=== PATIENT | male | born 1970 | race Caucasian/White ===

== ENCOUNTER → 2017-02-06 | Outpatient (CLI) | payer BC, OTHER ==
--- NOTE | 2017-02-06 14:14 | REP ---
Right ankle four views: Mineralization joint spaces are normal. The mortise is symmetric. There are accessory ossicles distal to the medial malleolus. There is no fracture or dislocation. There are calcaneal plantar and Achilles spurs. Impression: Essentially negative right ankle. Signed by Dixon Osullivan MD 02/06/2017 02:05 P
== END ==
LOC: M WUC 13:44
PROVIDERS: ATTEND Physician Assistant
DX: M25.571 Pain in right ankle and joints of right foot (principal)

== ENCOUNTER 2021-06-25 14:41 | Inpatient (IN) | payer BC, OTHER ==
[~2021-06-25] VITALS: Ht 177.8 cm; Wt 136.6 kg
--- OUTSIDE RECORDS SUMMARY | 2021-06-25 14:48 | CCD ---
Author Author [facility] Address Unknown Phone Unavailable Support Name Relationship Address Phone SUPERWALM Next Of Kin [address] [place], [place] [id number] LULU HOFFMANN Next Of Kin [address] [place] [address] Marianela HOFFMANN Next Of Kin [address] [place], [place] [id number] Re-disclosure Warning The records that you are about to access may contain information from federally-assisted alcohol or drug abuse programs. If such information is present, then the following federally mandated warning applies: This information has been disclosed to you from records protected by federal confidentiality rules (42 CFR part 2). The federal rules prohibit you from making any further disclosure of this information unless further disclosure is expressly permitted by the written consent of the person to whom it pertains or as otherwise permitted by 42 CFR part 2. A general authorization for the release of medical or other information is NOT sufficient for this purpose. The Federal rules restrict any use of the information to criminally investigate or prosecute any alcohol or drug abuse patient.The records that you are about to access may contain highly sensitive health information, the redisclosure of which is protected by Article 27-F of the [facility] Public Health law. If you continue you may have access to information: Regarding HIV / AIDS; Provided by facilities licensed or operated by the [facility] Office of Mental Health; or Provided by the [facility] Office for People With Developmental Disabilities. If such information is present, then the following [facility] mandated warning applies: This information has been disclosed to you from confidential records which are protected by state law. State law prohibits you from making any further disclosure of this information without the specific written consent of the person to whom it pertains, or as otherwise permitted by law. Any unauthorized further disclosure in violation of state law may result in a fine or fdc sentence or both. A general authorization for the release of medical or other information is NOT sufficient authorization for further disc losure. Family History Family Member Name Family Member Gender Family Member Status Date o f Status Description Data Source(s) Unknown Unknown Problem [facility] ([facility]) mother Immunizations Vaccine Date Status Description Data Source(s) COVID-19 VACCINE Tamir 01/28/2021 12:00:00 AM EDT completed [place] Vaccine Series Complete: YESThis Data wa s Submitted to [facility] Via [employer]. Medications No Information Insurance Providers Payer name Policy type / Coverage type Policy ID Covered green party ID Covered green party's relationship to webb Policy Webb Plan Information [facility]307 [id number] SP [id number] [facility] [id number] SP [id number] BCBS [facility] 020/520 [id number] SP [id number] ANSI-Commercial [id number] EXCELLUS BCBS B [id number] S W [id number] BCBS/Blue Card Commercial [id number] Self [id number] [facility] O [id number] S [id number] [facility] UNAVAILABLE SP UNAVAILABLE [facility] [id number] SP [id number] BLUE CROSS BLUE SHIELD -O/P [id number] 18 [id number] BLUE CROSS BLUE SHIELD -O/P [id number] 18 [id number] Problems, Conditions, and Diagnoses No Information Surgeries/Procedures No Information Results No Information Social History No Information
--- OUTSIDE RECORDS SUMMARY | 2021-06-25 17:19 | CCD ---
Author Author [facility] Address Unknown Phone Unavailable Support Name Relationship Address Phone SUPERWALM Next Of Kin [address] [place] [address] LULU HOFFMANN Next Of Kin [address] [place] [address] Marianela HOFFMANN Next Of Kin [address] [place] [address] Re-disclosure Warning The records that you are [...] is protected by Article 27-F of the [facility] Public Health law. If you continue you may have access to information: Regarding HIV / AIDS; Provided by facilities licensed or operated by the [facility] Office of Mental Health; or Provided by the [facility] Office for People With Developmental Disabilities. If such information is present, then the following [facility] mandated warning applies: This information has been [...] law may result in a fine or mcc sentence or both. A general authorization for [...] Complete: YESThis Data wa s Submitted to [facility] Via [employer]. Medications No Information Insurance Providers Payer name Policy type / Coverage type Policy ID Covered alliance party ID Covered alliance party's relationship to webb Policy Webb Plan Information BCBS OF [place] 020/520 [id number] SP [id number] BCBS [place] PPO 302/307 [id number] SP [id number] [facility] [id number] SP [id number] ANSI-Commercial [id number] EXCELLUS BCBS B [id number] S W [id number] BCBS/Blue Card Commercial [id number] Self [id number] [facility] O [id number] S [id number] [facility] UNAVAILABLE SP UNAVAILABLE [facility] [id number] SP [id number] BLUE CROSS BLUE SHIELD -O/P [id number] 18 [id number] BLUE CROSS BLUE SHIELD -O/P [id number] 18 [id number] Problems, Conditions, and Diagnoses No Information Surgeries/Procedures No Information Results No Information Social History No Information
--- NOTE | 2021-06-25 17:29 | REP ---
INDICATION: ulcer, drainage, ? osteo COMPARISON: None. TECHNIQUE: Four views right toes. FINDINGS: There is significant soft tissue swelling of the right 2nd toe. Soft tissue ulceration is seen at the distal aspect of the 2nd toe. There is cortical destruction and ill-defined lucency of the 2nd distal phalanx consistent with osteomyelitis. IMPRESSION: Osteomyelitis of the 2nd distal phalanx. <Electronically signed by Dixon Chew > 06/25/21 [id number]
[2021-06-25] MEDS ORDERED: PIPERACILLIN/TAZOBACTAM SOD 4.5 GM in D5W MINI-BAG PLUS 50 ML IV ONE (18:00)
[2021-06-25] MEDS ORDERED: VANCOMYCIN HCL 2,000 MG in D5W 500 ML IV ONE (18:00)
[2021-06-25 19:16] LABS: BASO # 0.1 10^3/uL (0.0-0.2); BASO % 0.6 % (0.0-1.0); EOS # 0.2 10^3/uL (0.0-0.5); EOS % 2.1 % (0.0-3.0); HEMOGLOBIN 16.1 g/dl (13.5-17.5); LYMPH # 1.3 10^3/uL (1.5-5.0); LYMPH % 13.8 % (24.0-44.0); MEAN CORPUSCULAR HEMOGLOBIN 29.5 pg (27.0-33.0); MEAN CORPUSCULAR HGB CONC 33.5 g/dl (32.0-36.5); MEAN CORPUSCULAR VOLUME 87.9 fl (80.0-96.0); MONO # 0.6 10^3/uL (0.0-0.8); MONO % 6.7 % (2.0-8.0); NEUTROPHILS # 7.2 10^3/uL (1.5-8.5); NEUTROPHILS % 76.3 % (36.0-66.0); PLATELET COUNT, AUTOMATED 184 10^3/uL (150-450); RED BLOOD COUNT 5.46 10^6/uL (4.30-6.10); WHITE BLOOD COUNT 9.4 10^3/uL (4.0-10.0)
[2021-06-25 19:36] LABS: ERYTHROCYTE SEDIMENTATION RATE 38 mm/hr (0-15)
[2021-06-25 19:37] LABS: ALBUMIN 3.5 GM/DL (3.2-5.2); ALT/SGPT 26 U/L (12-78); BILIRUBIN,TOTAL 1.1 MG/DL (0.2-1.0); BLOOD UREA NITROGEN 15 MG/DL (7-18); CALCIUM LEVEL 9.1 MG/DL (8.5-10.1); CARBON DIOXIDE LEVEL 28 MEQ/L (21-32); CHLORIDE LEVEL 100 MEQ/L (98-107); GLOMERULAR FILTRATION RATE > 60.0 (>60); GLUCOSE, FASTING 280 MG/DL (70-100); POTASSIUM SERUM 4.1 MEQ/L (3.5-5.1); SODIUM LEVEL 132 MEQ/L (136-145); TOTAL PROTEIN 8.1 GM/DL (6.4-8.2)
[2021-06-25 20:00] LABS: HEMOGLOBIN A1c 9.7 %
[2021-06-25] MEDS ORDERED: VANCOMYCIN HCL 1,000 MG, VIAL MATE ADAPTER 1 EACH in NS 250 ML IV ONE ×6 (20:00)
[2021-06-25] MEDS ORDERED: HumuLIN R (REGULAR) INSULIN (NovoLIN R) **100U/ML** PER UNIT IV ONE (20:25)
[2021-06-25] MEDS ORDERED: NS 1,000 ML IV SCH (20:25)
--- OUTSIDE RECORDS SUMMARY | 2021-06-25 20:47 | CCD ---
Author Author [facility] Address Unknown Phone Unavailable Support Name Relationship Address Phone SUPERWALM Next Of Kin [address] [place] [address] LULU HOFFMANN Next Of Kin [address] [place] [address] Marianela HOFFMANN Next Of Kin [address] [place] [address] Re-disclosure Warning The records that you are [...] is protected by Article 27-F of the [facility] Public Health law. If you continue you may have access to information: Regarding HIV / AIDS; Provided by facilities licensed or operated by the [facility] Office of Mental Health; or Provided by the [facility] Office for People With Developmental Disabilities. If such information is present, then the following [facility] mandated warning applies: This information has been [...] law may result in a fine or long-term sentence or both. A general authorization for [...] Complete: YESThis Data wa s Submitted to [facility] Via [employer]. Medications No Information Insurance Providers Payer name Policy type / Coverage type Policy ID Covered alliance party ID Covered alliance party's relationship to webb Policy Webb Plan Information BCBS OF [place] 020/520 [id number] SP [id number] BCBS [place] PPO 302/307 [id number] SP [id number] [facility] [id number] SP [id number] ANSI-Commercial [id number] EXCELLUS BCBS B [id number] S W [id number] BCBS/Blue Card Commercial [id number] Self [id number] [facility] O [id number] S [id number] [facility] UNAVAILABLE SP UNAVAILABLE [facility] [id number] SP [id number] BLUE CROSS BLUE SHIELD -O/P [id number] 18 [id number] BLUE CROSS BLUE SHIELD -O/P [id number] 18 [id number] Problems, Conditions, and Diagnoses No Information Surgeries/Procedures No Information Results No Information Social History No Information
--- NOTE | 2021-06-25 20:51 | HPEPDOC ---
General Date of Admission Jun 25, 2021 at 20:37 Date of Service: Jun 25, 2021 Attending Physician: MIREYA ZAVALETA MD Chief Complaint toe pain History of Present Illness History of present illness: Mr. Beebe is a 50 year old male presenting to the emergency department for right second toe pain of two weeks duration. He states that he has had a hard time finding shoes that fit him properly and do not cause his toes to "curl under". His toes often rubbed on the inside of his work shoes while walking and rubbed an area of his skin off. He noticed that his second toe on his right foot was swollen and red about two weeks ago. He has experienced this before and despite the toe being mildly painful, he thought it would heal on its own. He works maintenance at [employer] and bought a new pair of work shoes 5 days ago. He started wearing those shoes to work on Wednesday and by the end of the work day his toe had swollen to twice its size, was very painful, and had an open oozing area visible on the top. He went to work on Wednesday and decided to present to an Urgent care earlier today to get his toe checked out. He was advised to present to the ED by the urgent care provider. He denies feeling any pain in the toe today despite it looking physically worse and oozing a thick p urulent discharge. He can bear weight on the foot but states his foot is mildly painful due to swelling. He has a history of ingrown toenails. Review of systems: General: denies fever, chills, or night sweats HEENT: denies changes in vision, difficulty swallowing, swollen glands Cardiovascular: denies chest pain or palpitations Pulmonary: denies shortness of breath, pain with inspiration, wheezing, cough Abdomen: denies nausea, vomiting, diarrhea, admits to occasional constipation Extremities: admits to right foot pain and swelling, particularly his right second toe which is red, swollen, and draining a thick purulent discharge. Admits to decreased sensation on his right second toe Past medical/surgical history: Prediabetes Acute Lymphocytic leukemia 1989 (in remission since 1994) Bone marrow biopsy circa 1989 Family history: Father in 60's from pneumonia / Mother: in 60's from Diabetes mellitus complications / Brother: from head injury Social history: Patient denies tobacco or illicit drug use / Patient admits to occasional alcohol use / Patient lives alone in [place], [place] and works at [employer] Allergies: No known drug allergies Physical examination: General: A well nourished male sitting in bed in no acute distress. He is pleasant to speak with. HEENT: PERRLA, EOMI, mucous membranes moist and pink, no lymphadenopathy noted Cardiovascular: regular rate and rhythm, no murmurs or gallops appreciated Pulmonary: clear to auscultation bilaterally, no wheezes or rhonchi noted Extremities: 1+ pitting edema noted in right foot up to midshin. The skin on his 1st-5th toes on the right foot appears erythematous. His right 2nd phalanx is equal in size to 1st phalanx secondary to edema. There is a 1.5cm open ulceration on the superior aspect of the toe, white purulent drainage and blood is noted. There is a calloused area on the inferior aspect of the 2nd distal phalanx. His right foot is warm to the touch. Pulses are 2+ throughout. Capillary refill is <2 seconds. Neuro: Patient has full sensation of both lower extremities with the exception o f his second toe which has decreased sensation to light touch. Psych: alert and oriented x 4. Imaging: Toe X-ray 06/25/21 IMPRESSION: Osteomyelitis of the 2nd distal phalanx. Assessment: Mr. Beebe is a 50 year old male with a past medical history of Prediabetes and Acute Lymphocytic leukemia who presented to the emergency department for right second toe pain of two weeks duration. In the emergency department he was found to have osteomyelitis of the right 2nd distal phalanx. He is being admitted for treatment and will be seen by Dr. Barry this AM. Plan: Osteomyelitis -Right 2nd distal phalanx, x-ray results as above -WBC wnl -ESR and CRP elevated -Wound culture and blood cultures pending -Dr. Barry has been consulted on this patient, we appreciate his input as he will see the patient this AM -Keep patient NPO after midnight anticipating possible surgery with Dr. Barry -started vancomycin q 12 hours, can deescalate based on culture sensitivities. Diabetes Mellitus -Plasma glucose 232 -hemoglobin A1C 9.7 -Patient is NPO, FSBG q 6 hours -patient will need outpatient follow up on this new diagnosis -started sliding scale insulin with hypoglycemic protocol. Will hold while savanah ent is NPO -will start long acting basal insulin once patient is no longer NPO Acute Lymphocytic leukemia -Patient in remission since 1994 Class 3 obesity -complicates care DVT prophylaxis: -continue heparin Disposition: home after at least 2 midnight's stay Home Medications Scheduled Cephalexin (Cephalexin) 500 Mg Tablet, 500 MG PO QID Metformin HCl (Metformin HCl) 500 Mg Tablet, 500 MG PO BID Allergies Coded Allergies: asparaginase (Verified Allergy, Intermediate, ARM SWELLING, HYPOTENSION, 06/25/21) A-FIB/CHADSVASC A-FIB History Current/History of A-Fib/PAF?: No Current PO Anticoag Therapy: No Vital Signs Vital Signs Date Time Temp Pulse Resp B/P (MAP) Pulse Ox O2 Delivery O2 Flow Rate FiO2 06/25/21 20:45 98.7 92 16 149/78 (101) 97 Room Air Laboratory Data Labs 24H Laboratory Tests 2 06/25/21 17:01: Immature Granulocyte % (Auto) 0.5, Neutrophils (%) (Auto) 76.3H, Lymphocytes (%) (Auto) 13.8L, Monocytes (%) (Auto) 6.7, Eosinophils (%) (Auto) 2.1, Basophils (%) (Auto) 0.6, Neutrophils # (Auto) 7.2, Lymphocytes # (Auto) 1.3L, Monocytes # (Auto) 0.6, Eosinophils # (Auto) 0.2, Basophils # (Auto) 0.1, Nucleated Red Blood Cells % (auto) 0.0, Erythrocyte Sedimentation Rate 38H, Anion Gap 4L, Glomerular Filtration Rate > 60.0, Calcium Level 9.1, Total Bilirubin 1.1H, Aspartate Amino Transf (AST/SGOT) 12, Alanine Aminotransferase (ALT/SGPT) 26, Alkaline Phosphatase 95, C-Reactive Protein, Quantitative 13.70H, Total Protein 8.1, Albumin 3.5, Albumin/Globulin Ratio 0.8 06/25/21 18:03: Estimated Mean Plasma Glucose 232H, Hemoglobin A1c 9.7 06/25/21 19:33: POC Lactate (Misc Panel) 1.49 CBC/BMP Laboratory Tests 06/25/21 17:01 Microbiology Microbiology 06/25/21 Blood Culture, Received Pending 06/25/21 Blood Culture, Received Pending 06/25/21 Wound Culture, Received Pending Plan / VTE VTE Prophylaxis Ordered?: Yes GME ATTESTATION GME ATTESTATION My faculty preceptor for this patient encounter was physically present during the encounter and was fully available. All aspects of the patient interview, e xamination, medical decision making process, and medical care plan development were reviewed and approved by the faculty preceptor. The faculty preceptor is aware and concurs with the plan as stated in the body of this note and will attest to such by his/her cosignature. ATTENDING NOTE Time of service 427PM is a 50 yr old w a hx of pre-DM and class 3 obesity who presented w c/o right 2nd toe redness and swelling; he denies having pain, f/c. His PE is remarkable for a right 2nd toe that swollen with purulent discharge and redness tracking up the dorsal surface of the forefoot. He will be admitted for: #Right 2nd toe osteomyelitis #Uncontrolled DM w neuropathy #class 3 obesity He is NPO and is on abx; will likely perform amputation of the toe in the morning. If his A1C is > 8.5% which we suspect he will need to be started on basal and bolus insulin prior to discharge. Rest per GERSON Cárdenas DO Jun 25, 2021 20:50 MIREYA ZAVALETA MD Jun 26, 2021 00:26
[2021-06-25] MEDS ORDERED: MAALOX 30 ML SUSP *UDC PO PRN (20:55)
[2021-06-25] MEDS ORDERED: MOM 30ML SUSPENSION UDC PO PRN (20:55)
[2021-06-25] MEDS ORDERED: ACETAMINOPHEN TAB 650MG DOSE (2X325MG) PO PRN (20:55)
[2021-06-25] MEDS ORDERED: GLUCOSE 4GM CHEW TABLET PO PRN (21:00)
[2021-06-25] MEDS ORDERED: HumaLOG INSULIN (NovoLOG) PER UNIT SC SCH (21:00)
[2021-06-25] MEDS ORDERED: GLUCAGON INJ 1MG VIAL SC PRN (21:00)
[2021-06-25] MEDS ORDERED: DEXTROSE 50% 50 ML SYRINGE IV PRN (21:00)
[2021-06-25] MEDS ORDERED: VANCOMYCIN HCL 1,000 MG, VIAL MATE ADAPTER 1 EACH in NS 250 ML IV SCH (21:30)
[2021-06-25] MEDS ORDERED: HOME MED LIST COMPLETE! XX SCH (23:30)
[2021-06-26] VITALS (9 sets, daily range): BP systolic 138–163; BP diastolic 60–95
[2021-06-26] MEDS ORDERED: CARE1KIT XX (00:29)
[2021-06-26] MEDS: DOCUSATE SODIUM 100MG CAPSULE PO SCH ×3 (00:41→20:03)
[2021-06-26] MEDS: HumaLOG INSULIN (NovoLOG) PER UNIT SC SCH ×5 (00:57→23:26)
[2021-06-26] MEDS: NS 1,000 ML IV SCH ×2 (00:57→09:11)
[2021-06-26] MEDS: HEPARIN SOD (PORCINE) 5000UNITS/ML 1ML VIAL/SYRINGE SC SCH ×3 (04:22→22:01)
[2021-06-26] MEDS: VANCOMYCIN HCL 750 MG, VIAL MATE ADAPTER 1 EACH in NS 250 ML IV SCH ×6 (05:45→23:25)
[2021-06-26 06:56] LABS: BLOOD UREA NITROGEN 12 MG/DL (7-18); C REACTIVE PROTEIN QUANTITATIV 9.08 MG/DL (0.00-0.30); CARBON DIOXIDE LEVEL 25 MEQ/L (21-32); CHLORIDE LEVEL 107 MEQ/L (98-107); CREATININE FOR GFR 0.76 MG/DL (0.70-1.30); GLOMERULAR FILTRATION RATE > 60.0 (>60); GLUCOSE, FASTING 155 MG/DL (70-100); POTASSIUM SERUM 3.6 MEQ/L (3.5-5.1); SODIUM LEVEL 139 MEQ/L (136-145)
[2021-06-26 06:59] LABS: BASO # 0.1 10^3/uL (0.0-0.2); BASO % 0.6 % (0.0-1.0); EOS # 0.3 10^3/uL (0.0-0.5); EOS % 3.3 % (0.0-3.0); HEMATOCRIT 40.8 % (42.0-52.0); LYMPH # 1.6 10^3/uL (1.5-5.0); MEAN CORPUSCULAR HEMOGLOBIN 29.8 pg (27.0-33.0); MEAN CORPUSCULAR HGB CONC 33.6 g/dl (32.0-36.5); MEAN CORPUSCULAR VOLUME 88.9 fl (80.0-96.0); MONO # 0.8 10^3/uL (0.0-0.8); MONO % 9.6 % (2.0-8.0); NEUTROPHILS # 5.1 10^3/uL (1.5-8.5); PLATELET COUNT, AUTOMATED 161 10^3/uL (150-450); RED BLOOD COUNT 4.59 10^6/uL (4.30-6.10); WHITE BLOOD COUNT 7.8 10^3/uL (4.0-10.0)
[2021-06-26 07:07] LABS: HEMOGLOBIN 13.7 g/dl (13.5-17.5)
[2021-06-26] MEDS ORDERED: HumaLOG INSULIN (NovoLOG) PER UNIT SC SCH (07:30)
[2021-06-26 09:26] LABS: ERYTHROCYTE SEDIMENTATION RATE 52 mm/hr (0-15)
--- NOTE | 2021-06-26 10:28 | IPNPDOC ---
Text Note Date of Service The patient was seen on 06/26/21. NOTE S: Patient seen and evaluated at bedside this a.m. He tells me he is feeling well and that his right lower extremity and right foot pain has improved since admission. He does report occasional tenderness localized to right second phalanx, which she tells me has also improved. Patient tells me he first noticed open ulcer on right second toe a few days ago but that it was not painful and he does not know how long the ulcer have been there. He tells me his right foot have become swollen and painful secondary to the swelling, and that his right lower extremity was also tender. Patient tells me that all of his complaints were secondary to "new shoes." Denies fever/chills, chest pain, shortness of breath, abdominal pain, nausea. Denies changes in urination/BM. Denies changes in sensation. Denies changes in vision. O: GEN: Alert, awake, laying in bed, NAD HEENT: NC/AT, EOMI, nares patent, moist mucous membranes CARDIO: RRR, normal heart sounds, no MRG PULM: CTA b/l, no WRR, no accessory muscles used ABD: soft, nontender, nondistended, normal BS EXTREMITIES: +1 edema dorsum of right foot. No edema otherwise, normal ROM. Diabetic foot exam performed this AM no bony abnormalities, no open wounds, sensation changes noted. 10 point sensation test was performed on bilateral feet and patient had appropriate response. 2+ PT/DP pulses palpated bilaterally. SKIN: Area of erythema on dorsum of right foot marked and dated with improved erythema during evaluation this morning. No warmth, tenderness with palpation. Right toe wrapped in gauze-intact, clean, unsaturated. No other open ulcers noted on bilateral feet/toes. No additional skin changes noted. Chronic skin thickening (callous) noted bilateral soles localized to the balls of feet. IMAGING: (06/25) XRay, Right toes Osteomyelitis of the 2nd distal phalanx. A/P: Reddy is a 50-year-old male past medical history of prediabetes who presented with right foot swelling and pain, found to have open ulceration with purulent drainage from right 2nd toe and osteomyelitis on imaging, now on vancomycin day 1 pending podiatry consult for possible surgery. #Osteomyelitis right toe, acute (06/26) WBC 7.8, ESR 52, CRP 9.08 MRSA PCR pending Blood culture, wound culture pending Continue vancomycin 750 mg (started 06/26) Podiatry (Dr. Barry) on consult, appreciate recommendations Of note, patient received vancomycin and Zosyn while in ED. #T2DM Fasting blood glucose this a.m. 155 Continue FSBS We will start SSI and Levemir, pending diet Order cardiac risk profile Of note, upon admission, plasma glucose 232, HbA1c 9.7. Patient tells me he is prediabetic and has not seen a healthcare provider since 2018. Patient will need to establish care with PCP upon discharge for further management of chronic conditions and newly diagnosed type 2 diabetes mellitus. #Acute lymphocytic leukemia, chronicstable (06/26) WBC 7.8 Of note, patient in remission since 1994 #DVT Prophylaxis Continue heparin DIET: NPO, pending podiatry evaluation ACTIVITY: As tolerated DISPO: Home, pending clinical improvement Attending Attestation: I saw and evaluated the patient. I agree with the finding and the plan of care as documented in the residents note. VS,Fishbone, I+O VS, Fishbone, I+O Laboratory Tests 06/25/21 17:01 06/26/21 05:49 Vital Signs Date Time Temp Pulse Resp B/P (MAP) Pulse Ox O2 Delivery O2 Flow Rate FiO2 06/26/21 06:00 99.0 90 18 163/89 (113) 94 Room Air I&O- Last 24 Hours up to 6 AM 06/26/21 06:00 Intake Total 2350 ml Balance 2350 ml Carolina Marks DO Jun 26, 2021 10:28 CULLEN DUCKWORTH MD Jun 27, 2021 06:33
--- NOTE | 2021-06-26 17:50 | CR ---
CONSULTATION DATE: 06/26/2021 REASON FOR CONSULTATION: Toe infection. Nathan Beebe is a 50-year-old male who was admitted to the hospital due to right 2nd toe ulceration and infection. He states it has been present a few days and has been progressively getting worse. He went to the emergency room (ER) for evaluation. MEDICAL HISTORY: 1. Diabetes. 2. History of acute lymphocytic leukemia. SURGICAL HISTORY: Bone marrow biopsy. SOCIAL HISTORY: Denies tobacco, drug use, or alcohol. ALLERGIES: ASPARAGINASE. REVIEW OF SYSTEMS: He denies nausea, vomiting, fever or chills. VITAL SIGNS: Maximum temperature (T-max) is 99.5. LABORATORY DATA: White blood cell count 7.8, ESR 52, CRP 9.08. Toe x-rays were taken, which show erosive changes to the 2nd toe distal phalanx. On examination, there is erythema and edema to the right 2nd toe with purulent drainage coming from an ulceration over the dorsal aspect of the toe as well as an ulceration at the distal toe. ASSESSMENT: A 50-year-old diabetic male with right 2nd toe osteomyelitis. PLAN: [facility].
[2021-06-26] MEDS ORDERED: ONDANSETRON 4MG/2ML VIAL As Ordered ONE (18:16)
[2021-06-26] MEDS ORDERED: propofoL 500 MG/50 ML VIAL As Ordered ONE (18:16)
[2021-06-26] MEDS ORDERED: dexameTHASONE 4 MG/ML 1ML VIAL (J1100 PER 1MG) As Ordered ONE (18:16)
[2021-06-26] MEDS ORDERED: LIDOCAINE 2% 100MG/5ML SDV (FOR ANES.) As Ordered ONE (18:16)
[2021-06-26] MEDS ORDERED: MIDAZOLAM INJ 2MG/2ML VIAL (J2250 PER 1MG) As Ordered ONE (18:17)
[2021-06-26] MEDS ORDERED: fentaNYL 100 MCG/2 ML INJECTION (J3010) As Ordered ONE (18:17)
[2021-06-26] MEDS ORDERED: LIDOCAINE 1% MDV 20ML VIAL As Ordered ONE (18:17)
[2021-06-26] MEDS ORDERED: BUPIVACAINE HCL 0.5% 10ML VIAL As Ordered ONE (18:17)
[2021-06-26] MEDS ORDERED: PERCOCET 5MG/325MG TAB PO PRN (19:50)
[2021-06-26] MEDS ORDERED: ONDANSETRON 4MG/2ML VIAL IV PRN (19:50)
[2021-06-26] MEDS ORDERED: LR 1,000 ML IV SCH (19:50)
[2021-06-26] MEDS ORDERED: fentaNYL 100 MCG/2 ML INJECTION (J3010) IV PRN (19:50)
[2021-06-26] MEDS ORDERED: METOCLOPRAMIDE INJ 10MG/2ML VIAL (J2765 PER 1) IV PRN (19:50)
[2021-06-27 00:45] VITALS: BP 138/72
[2021-06-27 04:45] VITALS: BP 136/93
[2021-06-27] MEDS: HEPARIN SOD (PORCINE) 5000UNITS/ML 1ML VIAL/SYRINGE SC SCH ×2 (05:27→14:30)
[2021-06-27] MEDS: HumaLOG INSULIN (NovoLOG) PER UNIT SC SCH (05:27)
[2021-06-27] MEDS: VANCOMYCIN HCL 750 MG, VIAL MATE ADAPTER 1 EACH in NS 250 ML IV SCH ×3 (05:30→14:30)
[2021-06-27 06:36] LABS: BASO # 0.1 10^3/uL (0.0-0.2); BASO % 0.7 % (0.0-1.0); EOS % 0.6 % (0.0-3.0); HEMATOCRIT 41.3 % (42.0-52.0); HEMOGLOBIN 13.8 g/dl (13.5-17.5); LYMPH # 1.3 10^3/uL (1.5-5.0); LYMPH % 19.5 % (24.0-44.0); MEAN CORPUSCULAR HEMOGLOBIN 29.4 pg (27.0-33.0); MEAN CORPUSCULAR HGB CONC 33.4 g/dl (32.0-36.5); MEAN CORPUSCULAR VOLUME 88.1 fl (80.0-96.0); MONO # 0.4 10^3/uL (0.0-0.8); MONO % 6.1 % (2.0-8.0); NEUTROPHILS # 4.9 10^3/uL (1.5-8.5); NEUTROPHILS % 72.5 % (36.0-66.0); PLATELET COUNT, AUTOMATED 175 10^3/uL (150-450); RED BLOOD COUNT 4.69 10^6/uL (4.30-6.10); WHITE BLOOD COUNT 6.8 10^3/uL (4.0-10.0)
[2021-06-27 06:46] VITALS: BP 128/70
[2021-06-27 07:09] LABS: BLOOD UREA NITROGEN 10 MG/DL (7-18); CALCIUM LEVEL 8.1 MG/DL (8.5-10.1); CARBON DIOXIDE LEVEL 26 MEQ/L (21-32); CHLORIDE LEVEL 107 MEQ/L (98-107); CHOLESTEROL LEVEL 140 MG/DL (<200); CHOLESTEROL RISK RATIO 4.666 (<5); CREATININE FOR GFR 0.73 MG/DL (0.70-1.30); GLOMERULAR FILTRATION RATE > 60.0 (>60); GLUCOSE, FASTING 185 MG/DL (70-100); HDL CHOLESTEROL 30 MG/DL (>40); LDL CHOLESTEROL 83 MG/DL (<100); NON-HDL-C 110 MG/DL; POTASSIUM SERUM 4.2 MEQ/L (3.5-5.1); SODIUM LEVEL 140 MEQ/L (136-145); TRIGLYCERIDES LEVEL 136 MG/DL (<150)
[2021-06-27] MEDS: DOCUSATE SODIUM 100MG CAPSULE PO SCH (07:56)
--- NOTE | 2021-06-27 08:31 | RO ---
OPERATIVE NOTE DATE OF OPERATION: 06/26/2021 SURGEON: Paramjit Barry DPM TEAM LEADER: None. PREOPERATIVE DIAGNOSIS: Right second toe ulceration and infection. POSTOPERATIVE DIAGNOSIS: Right second toe ulceration and infection. PROCEDURE: Right second toe amputation. ANESTHESIA: Monitored anesthesia care. PREOPERATIVE INJECTION: 10 cc of a one-to-one mixture of 1% lidocaine plain and 0.5% Marcaine plain. ESTIMATED BLOOD LOSS: Minimal. MATERIALS: 3-0 nylon. INJECTABLES: None. SPECIMENS: Right second toe, aerobic and anaerobic cultures. COMPLICATIONS: None. CONDITION: Stable. OPERATIVE INDICATIONS: Nathan Beebe is a 50-year-old male who is admitted to [facility] with worsening infection to his right second toe. He presents today for surgical correction. The patient's side and site were identified and marked in the preoperative area. Consent was reviewed and obtained. The risks, complications, and alternatives to the procedure were explained to the patient in detail and all questions were answered. PROCEDURE: The patient was brought to the operating room and placed on the operating room table in the supine position. Monitored anesthesia care was delivered by the anesthesia team. Preoperative injection of 10 cc of a one-to-one mixture of 1% lidocaine plain and 0.5% Marcaine plain were injected to the right foot. The right foot was prepped and draped in normal sterile fashion. No tourniquet was used live during the procedure. An ulceration was noted at the distal toe and at the dorsal aspect of the distal interphalangeal joint. An elliptical incision was made around this and carried through with a #15 blade. The toe was disarticulated at the proximal interphalangeal joint. Wound cultures were taken, aerobic and anaerobic. The head of the proximal phalanx was removed with the bone cutter. The proximal portion of the toe bone was free of apparent infection. The site was irrigated with normal saline. Bovie was used to cauterize small bleeding vessels. The incision was repaired with 3-0 nylon. Sterile dressings were applied. The patient was brought to the PACU with vital signs stable and neurovascular status intact. He will be admitted to the floor for antibiotics..
--- NOTE | 2021-06-27 09:56 | IPNPDOC ---
Text Note Date of Service The patient was seen on 06/27/21. NOTE S: Patient seen and evaluated at bedside this a.m. He tells me he is feeling well and denies any acute complaints. He tells me he went to the OR yesterday afternoon for amputation of the second digit of his right foot, and tolerated surgery well. He tells me he had no complications with anesthesia and that his pain has been completely resolved. Denies difficulty ambulating. Denies fever/chills, chest pain, shortness of breath, abdominal pain, nausea. Denies changes in sensation. O: GEN: Alert, awake, laying in bed, NAD, mild diaphoresis HEENT: NC/AT, EOMI, nares patent, moist mucous membranes CARDIO: RRR, normal heart sounds, no MRG PULM: CTA b/l, no WRR, no accessory muscles used ABD: soft, nontender, nondistended, normal BS EXTREMITIES: Right foot wrapped in gauze and Jose bandage and in a boot. No edema otherwise, normal ROM. SKIN: No new abrasions/ulcers/rashes IMAGING: (06/25) XRay, Right toes Osteomyelitis of the 2nd distal phalanx. A/P: Reddy is a 50-year-old male past medical history of prediabetes who is found to have osteomyelitis on the second digit of the right foot now s/p right second toe amputation, on vancomycin day 2, with resolution of presenting symptoms and no acute complaints. #Right second toe ulceration and infection 2/2 osteomyelitis now s/p right second toe amputation 06/26improved No leukocytosis MRSA PCR negative Blood culture negative Wound culture positive MSSA Continue vancomycin 750 mg (started 06/26). Abx may be discontinued if negative margins were achieved upon amputation of infected bone 06/26. Patient may be transitioned to less aggressive antibiotic, given MSSA wound culture, if infected bone may still be of concern. According to podiatry's operative note from 06/26, "the proximal portion of the toe bone was free of apparent infection." Will discuss further with podiatry and adjust antibiotics accordingly. Podiatry (Dr. Barry) on consult, appreciate recommendations Of note, patient was found to have ESR 52, CRP 9.08 in ED and received vancomycin and Zosyn. Patient received 2 days of vancomycin 750 mg. #T2DM Fasting blood glucose this a.m. 185 Patient received 22 units Humalog through 06/26. Start Levemir 12U. Continue FSBS, SSI Cardiac risk profile WNL Of note, upon admission, plasma glucose 232, HbA1c 9.7. Patient tells me he is prediabetic and has not seen a healthcare provider since 2017. Patient will need to establish care with PCP upon discharge for further management of chronic conditions and newly diagnosed type 2 diabetes mellitus. Diabetic foot exam was performed at bedside 06/26 patient was found to have normal sensation, normal pulses, no additional skin changes or open wounds, no bony abnormalities. #Acute lymphocytic leukemia, chronicstable (06/26) WBC 6.8 Of note, patient in remission since 1994 #DVT Prophylaxis Continue heparin DIET: Consistent carb ACTIVITY: As tolerated DISPO: Home, pending clinical improvement Attending Attestation: I saw and evaluated the patient. I agree with the finding and the plan of care as documented in the residents note. VS,Fishbone, I+O VS, Fishbone, I+O Laboratory Tests 06/27/21 06:20 06/27/21 06:21 Vital Signs Date Time Temp Pulse Resp B/P (MAP) Pulse Ox O2 Delivery O2 Flow Rate FiO2 06/27/21 06:46 128/70 (89) 06/27/21 04:45 97.7 72 16 95 Room Air 06/26/21 19:13 10.0 I&O- Last 24 Hours up to 6 AM 06/27/21 06:00 Intake Total 3780 ml Output Total 1260 ml Balance 2520 ml Carolina Marks DO Jun 27, 2021 09:56 CULLEN DUCKWORTH MD Jun 28, 2021 06:37
[2021-06-27] MEDS ORDERED: GLUCOSE 4GM CHEW TABLET PO PRN (10:25)
[2021-06-27] MEDS ORDERED: DEXTROSE 50% 50 ML SYRINGE IV PRN (10:25)
[2021-06-27] MEDS ORDERED: GLUCAGON INJ 1MG VIAL SC PRN (10:25)
[2021-06-27] MEDS ORDERED: HumaLOG INSULIN (NovoLOG) PER UNIT SC SCH ×2 (12:00→21:00)
[2021-06-27] MEDS ORDERED: METF500T13 PO (13:11)
[2021-06-27] MEDS ORDERED: CEPH500T PO (13:11)
[2021-06-27 14:00] VITALS: BP 139/86
--- NOTE | 2021-06-27 15:08 | DS.PDOC ---
Discharge Summary General Date of Admission Jun 25, 2021 at 20:37 Date of Discharge 06/27/21 Attending Physician: CULLEN DUCKWORTH MD Specialist/Consultants Involve: ARLENE HANDLEY DPM Discharge Summary PROCEDURES PERFORMED DURING STAY: Right second toe amputation ADMITTING DIAGNOSES: 1. Osteomyelitis 2. Diabetes Mellitus DISCHARGE DIAGNOSES: 1. Right second toe ulceration and infection 2/2 osteomyelitis now s/p right second toe amputation 2. T2DM COMPLICATIONS/CHIEF COMPLAINT: Osteomyelitis. HISTORY OF PRESENT ILLNESS: Mr. Beebe is a 50 year old male presenting to the emergency department for right second toe pain of two weeks duration. He states that he has had a hard time finding shoes that fit him properly that do not cause his toes to "curl under". His toes often rub on the inside of his work shoes while walking and rubbed an area of his skin off. He noticed that his second toe on his right foot was swollen and red about two weeks ago. He has experienced this before and despite the toe being mildly painful, he thought it would heal on its own. He works maintenance at [employer] and bought a new pair of work shoes 5 days ago. He started wearing those shoes to work on Wednesday and by the end of the workday, his toe had swollen to twice its size, was very painful, and had an open oozing area visible on the top. He went to work on Wednesday and decided to present to an Urgent care earlier today to get his toe checked out. He was advised to present to the ED by the urgent care provider. He denies feeling any pain in the toe today despite it looking physically worse and oozing a thick purulent discharge. He can bear weight on the foot but states his foot is mildly painful due to swelling. He has a history of ingrown toenails. Patient was found to have ESR 52, CRP 9.08 in ED and received vancomycin and Zosyn. Imaging exhibited osteomyelitis of his 2nd right distal phalanx. HOSPITAL COURSE: Upon admission, patient was found to have erythematous skin on his 1st-5th toes on the right foot. His right 2nd phalanx was equal in size to 1st phalanx secondary to edema. A 1.5cm open ulceration on the superior aspect of the toe, white purulent drainage and blood was noted. A calloused area on the inferior aspect of the 2nd distal phalanx. His right foot was warm to the touch, PT/DP pulses 2+, capillary refill <2 seconds. He was started on Vancomycin 750mg, for which he received a total of 2days throughout hospitalization. Podiatry, Dr. Handley, was consulted who saw and evaluated the patient 06/26 and performed right second toe amputation. According to podiatry's operative note from 06/26, "the proximal portion of the toe bone was free of apparent infection." Patient tolerated surgery well and had no complications or complaints the following morning. As per podiatry recommendations, patient will be discharged home on Keflex [id number] and f/u outpatient. With regards to the patient's newly-diagnosed T2DM, plasma glucose 232, HbA1c 9.7 upon admission. Cardiac risk profile wnl. Patient tells me he is prediabetic and has not seen a healthcare provider since 2018. He was placed on SSI, for which he received 22U thru 06/26. Diabetic foot exam was performed at bedside 06/26 patient was found to have normal sensation, normal pulses, no additional skin changes or open wounds, no bony abnormalities. Patient will be discharged home on metformin and need to establish care with PCP upon discharge for further management of chronic conditions and newly diagnosed type 2 diabetes mellitus. Additional chronic comorbidities including Acute lymphocytic leukemia was stable and uncomplicated throughout hospitalization. Patient was found to be stable and medically optimized for discharge home. DISCHARGE MEDICATIONS: Please see below. ALLERGIES: Please see below. PHYSICAL EXAMINATION ON DISCHARGE: VITAL SIGNS: Please see below. GEN: Alert, awake, laying in bed, NAD, mild diaphoresis HEENT: NC/AT, EOMI, nares patent, moist mucous membranes NECK: Supple CARDIO: RRR, normal heart sounds, no MRG PULM: CTA b/l, no WRR, no accessory muscles used ABD: soft, nontender, nondistended, normal BS EXTREMITIES: Right foot wrapped in gauze and Jose bandage and in a boot. No edema otherwise, normal ROM. SKIN: No new abrasions/ulcers/rashes NEURO: no focal neuro deficits PSYCH: no depressed/anxious mood LABORATORY DATA: Please see below. IMAGING: (06/25) XRay, Right toes Osteomyelitis of the 2nd distal phalanx. PROGNOSIS: stable ACTIVITY: As tolerated DIET: consistent carbs DISCHARGE PLAN: 1. F/u Podiatry (Dr. Handley) 2. F/u PCP DISPOSITION: home DISCHARGE INSTRUCTIONS: 1. Right second toe ulceration and infection 2/2 osteomyelitis now s/p right second toe amputation Start Keflex 500mg QID [id number] Wound care and dressing changes, as recommended by podiatry F/u Podiatry, Dr. Handley 2. T2DM Start Metformin 500mg BID F/u PCP ITEMS TO FOLLOWUP ON ON OUTPATIENT: 1. Podiatry- f/u amputation, f/u abx (keflex) 2. PCP- establish care, newly diagnosed T2DM now on metformin, possible insulin? DISCHARGE CONDITION: Stable TIME SPENT ON DISCHARGE: 35 minutes. Attending Attestation: I saw and evaluated the patient. I agree with the finding and the plan of care as documented in the residents note. Vital Signs/I&Os Vital Signs Date Time Temp Pulse Resp B/P (MAP) Pulse Ox O2 Delivery O2 Flow Rate FiO2 06/27/21 06:46 128/70 (89) 06/27/21 04:45 97.7 72 16 95 Room Air 06/26/21 19:13 10.0 I&O- Last 24 Hours up to 6 AM 06/27/21 06:00 Intake Total 3780 ml Output Total 1260 ml Balance 2520 ml Laboratory Data Labs 24H Laboratory Tests 2 06/26/21 20:52: Vancomycin Level Trough 16.9 06/26/21 23:20: Bedside Glucose (Misc Panel) 282H 06/27/21 05:11: Bedside Glucose (Misc Panel) 194H 06/27/21 06:20: Anion Gap 7L, Glomerular Filtration Rate > 60.0, Calcium Level 8.1L, Triglycerides Level 136, Total Cholesterol 140, LDL Cholesterol 83, Non-HDL Cholesterol (LDL + VLDL) 110, Total HDL Cholesterol 30L, Cholesterol/HDL Ratio 4.666 06/27/21 06:21: Immature Granulocyte % (Auto) 0.6, Neutrophils (%) (Auto) 72.5H, Lymphocytes (%) (Auto) 19.5L, Monocytes (%) (Auto) 6.1, Eosinophils (%) (Auto) 0.6, Basophils (%) (Auto) 0.7, Neutrophils # (Auto) 4.9, Lymphocytes # (Auto) 1.3L, Monocytes # (Auto) 0.4, Eosinophils # (Auto) 0.0, Basophils # (Auto) 0.1, Nucleated Red Blood Cells % (auto) 0.0 06/27/21 11:33: Bedside Glucose (Misc Panel) 155H CBC/BMP Laboratory Tests 06/27/21 06:20 06/27/21 06:21 FSBS Laboratory Tests Test 06/26/21 23:20 06/27/21 05:11 06/27/21 11:33 Range/Units Bedside Glucose (Misc Panel) 282 194 155 70-105 MG/DL Microbiology Microbiology 06/26/21 Gram Stain - Final, Resulted 06/26/21 Wound Culture, Resulted Pending 06/26/21 Anaerobic Culture, Resulted Pending 06/25/21 Blood Culture - Preliminary, Resulted No growth after 24 hours . All specim... 06/25/21 Blood Culture - Preliminary, Resulted No growth after 24 hours . All specim... 06/25/21 Wound Culture - Final, Complete Staphylococcus Aureus Discharge Medications Scheduled Cephalexin (Cephalexin) 500 Mg Tablet, 500 MG PO QID Metformin HCl (Metformin HCl) 500 Mg Tablet, 500 MG PO BID Allergies Coded Allergies: asparaginase (Verified Allergy, Intermediate, ARM SWELLING, HYPOTENSION, 06/25/21) Carolina Marks DO Jun 27, 2021 15:08 CULLEN DUCKWORTH MD Jun 28, 2021 06:40
[2021-06-27] MEDS ORDERED: LEVEMIR (INSULIN DETEMIR) 1 UNITS/0.01ML SC SCH (21:00)
== END 2021-06-27 17:50 | disposition home or self-care (01) | DRG 314 ==
LOC: M ED 14:41 → M ED INP 20:37 → ENRESERV 23:07 → M MSPAV 06-26 00:04
PROVIDERS: ADMIT Internal Medicine; ATTEND Internal Medicine
PROC: 0Y6R0Z2 Detachment at Right 2nd Toe, Mid, Open Approach (ICD-10-PCS; principal; 2021-06-26 12:00)
DX: M86.171 Other acute osteomyelitis, right ankle and foot (principal); E11.69 Type 2 diabetes mellitus with other specified complication; C91.01 Acute lymphoblastic leukemia, in remission; E66.9 Obesity, unspecified; E11.42 Type 2 diabetes mellitus with diabetic polyneuropathy; Z79.4 Long term (current) use of insulin; Z79.899 Other long term (current) drug therapy; Z88.8 Allergy status to other drugs, medicaments and biological substances; Z20.822 Contact with and (suspected) exposure to COVID-19

== ENCOUNTER 2021-08-14 15:03 | Emergency (ER) | payer BC ==
[~2021-08-14] VITALS: Ht 172.7 cm; Wt 132.1 kg
[~2021-08-14 15:03] MED LIST: CARE1KIT XX; CEPH500T PO; METF500T13 PO
[2021-08-14 15:05] VITALS: BP 188/96
[2021-08-14] MEDS ORDERED: METF-838 (15:19)
[2021-08-14] MEDS ORDERED: DOXY-342 PO (15:41)
== END 2021-08-14 16:43 | disposition home or self-care (01) ==
LOC: M ED 15:03
DX: L03.115 Cellulitis of right lower limb (principal); E11.9 Type 2 diabetes mellitus without complications; Z88.8 Allergy status to other drugs, medicaments and biological substances; Z79.84 Long term (current) use of oral hypoglycemic drugs

== ENCOUNTER → 2025-05-17 | Outpatient (REF) | payer MEDICAID ==
[~2025-05-17] MED LIST changes: +ALCOPAD25 TOP; +ASPI81TA26 PO; +BACI1CAP PO; +BACT800T5 PO; +BLOOKIT21 XX; +DOXY-442 PO; +GLUC1TES2 XX; +LIPI20TA PO; +METF-838; +[UNRECOGNIZED DRUG - OTHER] TOP
[2025-05-17 15:32] LABS: ALT/SGPT 26 U/L (7.0-40); AST/SGOT 18 U/L (<34); CALCIUM LEVEL 8.7 MG/DL (8.5-10.1); CARBON DIOXIDE LEVEL 26 MMOL/L (20-31); CHLORIDE LEVEL 99 MMOL/L (98-107); CHOLESTEROL LEVEL 86 MG/DL (<200); CHOLESTEROL RISK RATIO 2.59 (<5); CREATININE FOR GFR 0.87 MG/DL (0.70-1.30); GLOMERULAR FILTRATION RATE > 90.0 (>56); LDL CHOLESTEROL 23.7 MG/DL (<100); NON-HDL-C 52.9 MG/DL; POTASSIUM SERUM 4.4 MMOL/L (3.5-5.1); SODIUM LEVEL 134 MMOL/L (136-145); TRIGLYCERIDES LEVEL 146 MG/DL (<150)
[2025-05-17 15:51] LABS: ESTIMATED AVERAGE GLUCOSE 189.0 MG/DL (60-110)
[2025-05-18 13:14] LABS: CREATININE, URINE 114.8 MG/DL; MALB URINE SIEMENS 8.0 MG/L; MAU/CREAT RATIO 6.9 MCG/MG (0.0-30.0)
== END ==
LOC: M LAB REF 14:12
PROVIDERS: ATTEND Family Medicine Addiction Medicine
DX: E10.621 Type 1 diabetes mellitus with foot ulcer (principal); L97.528 Non-pressure chronic ulcer of other part of left foot with other specified severity

== ENCOUNTER → 2025-08-17 | Outpatient (REF) | payer OTHER, MEDICAID ==
[2025-08-17 13:19] LABS: ALT/SGPT 29 U/L (7.0-40); AST/SGOT 26 U/L (<34); CALCIUM LEVEL 9.4 MG/DL (8.5-10.1); CARBON DIOXIDE LEVEL 27 MMOL/L (20-31); CHLORIDE LEVEL 103 MMOL/L (98-107); CHOLESTEROL LEVEL 97 MG/DL (<200); CHOLESTEROL RISK RATIO 3.05 (<5); CREATININE FOR GFR 0.93 MG/DL (0.70-1.30); GLOMERULAR FILTRATION RATE > 90.0 (>56); LDL CHOLESTEROL 25.2 MG/DL (<100); NON-HDL-C 65.2 MG/DL; POTASSIUM SERUM 4.8 MMOL/L (3.5-5.1); SODIUM LEVEL 141 MMOL/L (136-145); TRIGLYCERIDES LEVEL 200 MG/DL (<150)
[2025-08-17 14:04] LABS: ESTIMATED AVERAGE GLUCOSE 177.0 MG/DL (60-110)
== END ==
LOC: M LAB REF 11:58
PROVIDERS: ATTEND Family Medicine Addiction Medicine
DX: E10.621 Type 1 diabetes mellitus with foot ulcer (principal); L97.528 Non-pressure chronic ulcer of other part of left foot with other specified severity